=== PATIENT | female | born 1950 | race American Indian/Alaskan Native ===

== ENCOUNTER 2016-08-15 19:00 | Emergency (ER) | payer OTHER, MEDICAID ==
[~2016-08-15 19:00] MED LIST: Morphine 2 MG/ML Syringe ONE
[2016-08-15] MEDS ORDERED: Morphine 4 MG/ML Syringe IVPUSH ONE (19:02)
[2016-08-15] MEDS: Adenosine 6 MG/2 ML SDV IVPUSH ONE (19:10)
[2016-08-15] MEDS ORDERED: Adenosine 6 MG/2 ML SDV ONE ×2 (19:10→19:13)
[2016-08-15] MEDS ORDERED: Diltiazem 25 MG/5 ML SDV ONE ×2 (19:17→19:20)
[2016-08-15] MEDS ORDERED: Diltiazem 100 MG AdvVial ONE (19:26)
[2016-08-15] MEDS ORDERED: Diltiazem 100 MG in Sodium Chloride 0.9% 100 ML IV SCH (19:45)
--- NOTE | 2016-08-15 20:04 | EDM.PDOC ---
ED HISTORY OF PRESENT ILLNESS - General Chief Complaint: Respiratory Problem Stated Complaint: ILLNESS Time Seen by Provider: 08/15/16 19:53 Source: Reports: Patient, EMS, RN notes reviewed History Limitations: Reports: Respiratory distress - History of Present Illness INITIAL COMMENTS - FREE TEXT/NARRATIVE: 65-year-old female was in route via EMS services from [facility] emergency department to [facility] emergency department with a working diagnosis of necrotizing pneumonia with abscess. While in route became more short of breath more hypoxic and tachycardic 140s 150s she was brought here for further stabilization - Related Data Allergies/ADRs: Allergies Allergy/AdvReac Type Severity Reaction Status Date / Time Unable to Assess Allergy Unverified 08/15/16 19:13 Home Meds: Home Meds . [Unable to Verify Home Med List] 08/15/16 [History] Past Medical History Cardiovascular History: Reports: CAD Respiratory History: Reports: COPD Endocrine/Metabolic History: Reports: Diabetes, type II Social & Family History - Tobacco Use Smoking Status *Q: Current Some Day Smoker ED ROS GENERAL - Review of Systems Review Of Systems: Unable To Obtain ED EXAM, GENERAL - Physical Exam Exam: See Below Exam Limited By: Respiratory distress General Appearance: severe distress Respiratory/Chest: respiratory distress, decreased breath sounds, rhonchi Cardiovascular: tachycardia Course - Vital Signs Last Recorded V/S: Last Vital Signs Temp 98.8 F 08/15/16 19:01 Pulse 106 H 08/15/16 19:26 Resp 30 H 08/15/16 19:34 BP 169/90 H 08/15/16 19:34 Pulse Ox 94 L 08/15/16 19:34 - Orders/Labs/Meds Orders: Active Orders 24 hr Category Date Time Status Diltiazem [Cardizem] 100 mg Med 08/15/16 19:45 Active Sodium Chloride 0.9% [Normal Saline] 100 ml IV TITRATE Medication Orders Diltiazem HCl 100 mg/ Sodium (Chloride) 100 mls @ 5 mls/hr IV TITRATE CHANTE; 5 MG /HR PRN Reason: Protocol Labs: Laboratory Tests 08/15/16 08/15/16 Range/Units 19:24 19:24 WBC 19.2 H (4.5-11.0) K/uL RBC 3.25 L (3.30-5.50) M/uL Hgb 9.3 L (12.0-15.0) g/dL Hct 28.0 L (36.0-48.0) % MCV 86 (80-98) fL MCH 29 (27-31) pg MCHC 33 (32-36) % Plt Count 705 H (150-400) K/uL Neut % (Auto) 77 H (36-66) % Lymph % (Auto) 14 L (24-44) % Tripp % (Auto) 8 H (2-6) % Eos % (Auto) 0 L (2-4) % Baso % (Auto) 1 (0-1) % Sodium 133 L (140-148) mmol/L Potassium 3.5 L (3.6-5.2) mmol/L Chloride 100 (100-108) mmol/L Carbon Dioxide 22 (21-32) mmol/L Anion Gap 14.5 H (5.0-14.0) mmol/L BUN 5 L (7-18) mg/dL Creatinine 0.7 (0.6-1.0) mg/dL Est Cr Clr Drug Dosing 57.55 mL/min Estimated GFR (MDRD) > 60 (>60) Glucose 221 H (74-106) mg/dL Calcium 7.6 L (8.5-10.1) mg/dL Total Bilirubin 0.3 (0.2-1.0) mg/dL AST 26 (15-37) U/L ALT 11 L (12-78) U/L Alkaline Phosphatase 122 H (46-116) U/L Creatine Kinase 34 (26-192) U/L Troponin I 0.441 H* (0.000-0.056) ng/mL Total Protein 7.3 (6.4-8.2) g/dL Albumin 1.8 L (3.4-5.0) g/dL Globulin 5.5 H (2.3-3.5) g/dL Albumin/Globulin Ratio 0.3 L (1.2-2.2) Meds: Medications Generic Name Dose Route Start Last Admin Trade Name Freq PRN Reason Stop Dose Admin Diltiazem HCl 100 mg/ Sodium 100 mls @ 5 mls/hr 08/15/16 19:45 Chloride IV TITRATE CHANTE Protocol 5 MG/HR Discontinued Medications Generic Name Dose Route Start Last Admin Trade Name Freq PRN Reason Stop Dose Admin Adenosine Confirm 08/15/16 19:10 Adenocard Administered 08/15/16 19:11 Dose 6 mg .ROUTE .STK-MED ONE Adenosine Confirm 08/15/16 19:13 Adenocard Administered 08/15/16 19:14 Dose 12 mg .ROUTE .STK-MED ONE Diltiazem HCl Confirm 08/15/16 19:17 Diltiazem Administered 08/15/16 19:18 Dose 25 mg .ROUTE .STK-MED ONE Diltiazem HCl Confirm 08/15/16 19:20 Diltiazem Administered 08/15/16 19:21 Dose 25 mg .ROUTE .STK-MED ONE Diltiazem HCl Confirm 08/15/16 19:26 Cardizem Administered 08/15/16 19:27 Dose 100 mg .ROUTE .STK-MED ONE Sodium Chloride Confirm 08/15/16 19:26 Normal Saline Administered 08/15/16 19:27 Dose 100 mls @ as directed .ROUTE .STK-MED ONE Morphine Sulfate 4 mg 08/15/16 19:02 08/15/16 19:22 Morphine IVPUSH 08/15/16 19:03 4 mg ONETIME ONE Administration - Re-Assessments/Exams Free Text/Narrative Re-Assessment/Exam: 08/15/16 19:56 Initial EKG shows a left bundle branch block with a wide complex tachycardia monomorphic this then to a narrow complex tachycardia with a rhythm between 140 and 150 did 6 mg dose of adenosine which did slow the rate down briefly were able to identify P waves, next right 12 mg of adenosine again slowed the rate down into the 50s P waves were identified appeared to be sinus rhythm. Elected to proceed with diltiazem 18 mg dose was given this dropped her heart rate into the 100 range EKG was repeated demonstrated sinus tachycardia, next a diltiazem drip was set up at 5 mg an hour, she was initially on CPAP and having difficulty breathing she was given 4 mg of morphine which did provide some relief for her air hunger we're able to wean her off CPAP and back on a nasal cannula and maintained low 90 O2 saturation. At this time the ambulance crew felt comfortable for continuing transport we did draw initial labs they were pending at the time EMS left the building, I did call to the stockroom clerk and informed him that her troponin was elevated at 0.44 I'm suspicious that the left bundle branch block on her EKG is new Departure - Departure Time of Disposition: 20:08 Disposition: DC/Tfer to Acute Hospital 02 Reason for Transfer *Q: Other Condition: poor Clinical Impression: Necrotizing pneumonia, Elevated troponin Forms: ED Department Discharge - My Orders Last 24 Hours: My Active Orders 08/15/16 19:45 Diltiazem [Cardizem] 100 mg Sodium Chloride 0.9% [Normal Saline] 100 ml IV TITRATE - Assessment/Plan Last 24 Hours: My Active Orders 08/15/16 19:45 Diltiazem [Cardizem] 100 mg Sodium Chloride 0.9% [Normal Saline] 100 ml IV TITRATE Plan: Assessment Acuity = acute Site and laterality = supraventricular tachycardia complicated in a patient with history of necrotizing pneumonia and known coronary artery disease Etiology = suspicious for coronary artery disease involvement Manifestations = none Location of injury = home Lab values = WBC elevated at 19.2 consistent leukocytosis, hemoglobin low at 9.3 consistent normochromic anemia platelets elevated at 705 consistent with thrombocytosis sodium low at 133 consistent hyponatremia potassium low at 2.5 consistent hypokalemia troponin elevated at 0.441 suspicious for myocardial infarction albumin low at 1.8 consistent hypoalbuminemia initial EKG shows a wide complex tachycardia with a left bundle branch block, secondary EKG shows a sinus tachycardia with a left bundle branch block Plan Patient will continue transport to [facility] emergency department This note was dictated using [employer] voice recognition software please call with any questions.
[2016-08-15] MEDS: Sodium Chloride 0.9% 100 ML ONE ×2 (20:21→20:23)
[2016-08-15 20:24] VITALS: BP 179/97
[2016-08-18] MEDS ORDERED: Diltiazem 25 MG/5 ML SDV IVPUSH ONE ×2 (08:19→08:20)
[2016-08-18] MEDS ORDERED: Adenosine 6 MG/2 ML SDV IVPUSH ONE (08:21)
[2016-08-18] MEDS: Adenosine 6 MG/2 ML SDV IVPUSH ONE (08:26)
== END 2016-08-15 20:07 ==
LOC: JP.ED 19:00 → EEVIPCON 19:00 → JP.ED 20:07
DX: J85.0 Gangrene and necrosis of lung (principal); R74.8 Abnormal levels of other serum enzymes; J44.9 Chronic obstructive pulmonary disease, unspecified; E11.9 Type 2 diabetes mellitus without complications; F17.210 Nicotine dependence, cigarettes, uncomplicated
CPT/HCPCS: 36415; 80053; 82550; 84484; 85025; 96374; 96375; 99284; J0153; J2270; J7030; 93010; 99283; J3490